=== PATIENT | female | born 1985 | race Caucasian/White ===

== ENCOUNTER 2019-08-19 04:27 | Inpatient (IN) ==
[2019-08-19] MEDS ORDERED: Metoclopramide 10 MG/2 ML VIAL IVP PRN (04:28)
[2019-08-19] MEDS ORDERED: Lidocaine 1% 20 ML MDV ID PRN (04:28)
[2019-08-19] MEDS ORDERED: *HR* Nalbuphine 10 MG/ML AMPUL IVP PRN (04:28)
[2019-08-19] MEDS ORDERED: Ondansetron 4 MG/2 ML VIAL IVP PRN (04:28)
[2019-08-19] MEDS ORDERED: Naloxone 0.4 MG/ML INJ IVP PRN (04:28)
[2019-08-19] MEDS ORDERED: Famotidine 20 MG/2 ML VIAL IVP PRN (04:28)
[2019-08-19] MEDS ORDERED: Ringers Solution, Lactated 1,000 ML IVC SCH (04:30)
[2019-08-19] MEDS ORDERED: Penicillin G Potassium 5,000,000 UNIT in 0.9 % Sodium Chloride Mini Bag 100 ML IVPB ONE (04:31)
[2019-08-19] MEDS ORDERED: Ringers Solution, Lactated 1,000 ML ONE (04:40)
[2019-08-19 04:47] LABS: Basophils # 0.1 K/mcL (0.0-0.2); Basophils % 0.4 %; Eosinophils # 0.3 K/mcL (0.0-0.6); Eosinophils % 1.8 %; Hematocrit 34.4 % (35.3-44.9); Hemoglobin 12.1 g/dL (11.5-15.4); Lymphocytes # 2.8 K/mcL (0.6-4.6); Lymphocytes % 18.4 %; Mean Corpuscular HGB Conc 35.2 g/dL (31.6-35.5); Mean Corpuscular Hemoglobin 31.3 pg (28.0-33.3); Mean Corpuscular Volume 89.1 fL (83.0-100.0); Mean Platelet Volume 10.4 fL (9.4-12.4); Monocytes # 1.1 K/mcL (0.0-1.3); Monocytes % 6.9 %; Neutrophils # 10.9 K/mcL (1.6-8.9); Platelet Count 172 K/mcL (140-400); Red Blood Count 3.86 M/mcL (3.82-4.97); Red Cell Distribution Width 12.3 % (11.5-14.5); Segmented Neutrophils % 71.5 %; White Blood Count 15.3 K/mcL (4.3-11.1)
[2019-08-19] MEDS ORDERED: EPHEDrine 50 MG/ML VIAL IVP PRN (05:28)
[2019-08-19 05:30] LABS: Amphetamine Screen,Urine Negative ng/mL (Cutoff=1000); Barbiturate Screen,Urine Negative ng/mL (Cutoff=200); Benzodiazepines Screen,Urine Negative ng/mL (Cutoff=200); Cannabinoid Screen,Urine Negative ng/mL (Cutoff = 50); Cocaine Screen,Urine Negative ng/mL (Cutoff= 300); Opiate Screen,Urine Negative ng/mL (Cutoff=300); Phencyclidine Screen,Urine Negative ng/mL (Cutoff=25)
[2019-08-19] MEDS ORDERED: Epidural Premix (fent/bupiv) 110 ML EP ONE (05:30)
[2019-08-19] MEDS ORDERED: Epidural Premix (fent/bupiv) 110 ML EP SCH (05:30)
[2019-08-19] MEDS ORDERED: Ropivacaine/PF 0.2% 20 ML VIAL ONE (05:30)
[2019-08-19] MEDS ORDERED: *HR* FentaNYL (PF) 100 MCG/2 ML VIAL ONE (05:30)
[2019-08-19] MEDS ORDERED: Penicillin G Potassium 2,500,000 UNIT in 0.9 % Sodium Chloride 100 ML IVPB SCH (09:00)
[2019-08-19] MEDS ORDERED: Oxytocin 20 units/ LR 1000 mL 20 UNIT/1,000 ML BAG IVC ONE (11:20)
[2019-08-19] MEDS ORDERED: Rho Immune Globulin 1,500 UNIT SYRINGE IM PRN (13:19)
[2019-08-19] MEDS ORDERED: Acetaminophen 325 MG TABLET PO PRN (13:19)
[2019-08-19] MEDS ORDERED: Measles/Mumps/Rubella Vacc 0.5 ML VIAL SQ PRN (13:19)
[2019-08-19] MEDS ORDERED: Oxytocin 20 units/ LR 1000 mL 20 UNIT/1,000 ML BAG IVC SCH (13:30)
[2019-08-19] MEDS ORDERED: Benzocaine/Menthol 56 GM AEROSOL SPRAY TP PRN (17:03)
[2019-08-19] MEDS ORDERED: Benzocaine/Menthol 56 GM AEROSOL SPRAY TP ONE (17:16)
[2019-08-19] MEDS: Ibuprofen 600 MG TABLET PO PRN (20:03)
[2019-08-20] MEDS: Ibuprofen 600 MG TABLET PO PRN (06:02)
[2019-08-20 06:45] LABS: Basophils % 0.2 %; Eosinophils # 0.3 K/mcL (0.0-0.6); Eosinophils % 2.4 %; Hematocrit 31.5 % (35.3-44.9); Hemoglobin 11.1 g/dL (11.5-15.4); Immature Granulocytes % 0.7 % (0-4); Lymphocytes % 22.4 %; Mean Corpuscular HGB Conc 35.2 g/dL (31.6-35.5); Mean Corpuscular Hemoglobin 31.7 pg (28.0-33.3); Mean Platelet Volume 10.6 fL (9.4-12.4); Monocytes # 0.8 K/mcL (0.0-1.3); Monocytes % 5.6 %; Neutrophils # 9.2 K/mcL (1.6-8.9); Platelet Count 154 K/mcL (140-400); Red Cell Distribution Width 12.5 % (11.5-14.5); Segmented Neutrophils % 68.7 %; White Blood Count 13.5 K/mcL (4.3-11.1)
[2019-08-20] MEDS ORDERED: Prenatal Vit/FA 1 EACH TABLET PO SCH (09:00)
[2019-08-20 09:49] VITALS: BP 119/81
== END 2019-08-20 15:30 | disposition home or self-care (01) | DRG 560 ==
LOC: 1NENULAB → 1NENUOBS 14:20
PROVIDERS: ADMIT Obstetrics & Gynecology; ATTEND Obstetrics & Gynecology